=== PATIENT | male | born 1965 | race Caucasian/White ===

== ENCOUNTER 2022-10-07 07:10 | Day surgery (SDC) | payer SELFPAY ==
[~2022-10-07] VITALS: Ht 188 cm; Wt 113.2 kg
[2022-10-07] MEDS ORDERED: VALACYCLOVIR1000 MG PO (07:28)
[2022-10-07] MEDS ORDERED: SILDENAFIL20 MG PO (07:29)
--- NOTE | 2022-10-07 09:09 | NUR ---
10/07/22 0909 Laurence Pedraza 0906 PT ARRIVED ASLEEP AND RESP EVEN AND UNLABORED.
--- NOTE | 2022-10-07 10:07 | NUR ---
PT IS BACK TO DS FROM PACU. HE IS STILL SLEEPY AND NEEDED A LITTLE MORE TIME.
--- NOTE | 2022-10-07 11:02 | NUR ---
LE 1053: PT AND ARE GIVEN VERBAL AND WRITTEN DC INSTRUCTIONS. QUESTIONS ARE ASKED AND ANSWERED. PT IS TAKEN TO PERSONAL VEHICLE VIA WC.
--- NOTE | 2022-10-07 15:52 | OR ---
[facility] [place] [facility] [address], [place] [address] Signed DATE OF OPERATION: SURGEON: Radha Ramires MD PREOPERATIVE DIAGNOSIS: Screening. POSTOPERATIVE DIAGNOSES: 1. 6 mm polyp at mid left colon. 2. A 10 mm polyp at 80 proximal left colon. 3. Moderate prep. PROCEDURES: Colonoscopy, snare polypectomy, hot biopsy and injection of tattoo at 80 cm. ESTIMATED BLOOD LOSS: None. INDICATIONS: Ирина is a 57-year-old gentleman, asked to see me for a screening colonoscopy. He has lower GI complaints. There is no family history of colon cancer or polyps. In the office, I gave him a pamphlet on colonoscopy and we reviewed the nature of the test. He understands there is risk including, but not limited to gas bloating, crampy abdominal pain, bleeding, perforation requiring surgery, and missed diagnosis. We also reviewed the need for IV conscious sedation. He had expressed understanding and wished to proceed. PROCEDURE IN DETAIL: Ирина was taken into our endoscopy suite and placed in the left lateral decubitus position. He was given 200 mcg of fentanyl, 9 mg of Versed to cover the case. A digital rectal exam was performed and this was unremarkable. He had good sphincter tone. No external hemorrhoids. No masses. The adult colonoscope had been introduced and advanced under direct visualization of camera. We took out a 6 mm polyp in his mid left colon with hot biopsy forceps. It took a little extra sedation and some abdominal compression in order to advance the scope directly into the cecum itself. Unfortunately, his prep was moderate. He still had some particulate liquid stool matter that I could not completely suction through the scope. He needs to take a double bowel prep in the future. We took pictures throughout for photodocumentation. The scope was then slowly withdrawn. We found a 10 mm polyp on the back of the fold at about 80 cm. It seems to be in the proximal colon. We took part of that out with the snare. Unfortunately, we only had a small snare available today. We decided we place a tattoo Electronically Signed By: RADHA RAMIRES MD 10/07/22 1552 PATIENT NAME: ИРИНА RODRIGUEZ OPERATIVE REPORT DATE OF : 67 REPORT #: [id number] PHYSICIAN: RADHA RAMIRES MD PCP: CHARLI DOBSON MD REPORT IS CONFIDENTIAL AND NOT TO BE RELEASED WITHOUT AUTHORIZATION [facility] [address], [place] [address] Signed in this area. Then switched out our injection needles and then the new product was quite flimsy and it was difficult to use that new injection needle. We think some tattoo went transmural, but some of it made underneath the mucosa. The rest of the colon and rectum were unremarkable. Upon retroflexion of scope we did not see any additional pathology above the anal canal. After this, the gas was suctioned out. The colonoscope removed. Ирина tolerated the procedure quite well. RECOMMENDATIONS: I will see Ирина in my office in next 7-14 days. He should return in the months ahead for repeat endoscopy. He should take a double bowel prep. Radha Ramires MD ALB/MODL /[id number] cc: MD Radha Carter MD Copies: CHARLI DOBSON DMD, ANDREW L MD ~ Electronically Signed By: RADHA RAMIRES MD 10/07/22 1552 PATIENT NAME: ИРИНА RODRIGUEZ OPERATIVE REPORT DATE OF : 67 REPORT #: [id number] PHYSICIAN: RADHA RAMIRES MD PCP: CHARLI DOBSON MD REPORT IS CONFIDENTIAL AND NOT TO BE RELEASED WITHOUT AUTHORIZATION
--- NOTE | 2022-10-10 12:33 | PATH ---
[facility] [address] [place], [place] [address] Signed SPECIMEN(S): A DESCENDING/LEFT COLON POLYP SPECIMEN(S): B DESCENDING/LEFT COLON POLYP AT 80 CM SPECIMEN SOURCE: A. DESCENDING/LEFT COLON POLYP B. DESCENDING/LEFT COLON POLYP AT 80 CM CLINICAL HISTORY: Screening FINAL PATHOLOGIC DIAGNOSIS: A. Descending / left colon polyp: - Tubular adenoma (two fragments). B. Descending / left colon polyp at 80 cm: - Hyperplastic polyps (two fragments). JVR:smh:C2NR MICROSCOPIC EXAMINATION: Histologic sections of all submitted blocks are examined by light microscopy. These findings, together with the gross examination, support the pathologic diagnosis. GROSS DESCRIPTION: Two specimens are received in two containers, labeled "EG." A. The specimen, labeled "EG, descending/left colon polyp," is received in formalin and consists of two garg soft tissue fragments that measure each 0.3 cm in greatest dimension. The specimen is entirely submitted in cassette (A1). B. The specimen, labeled "EG, descending/left colon polyp," is received in formalin and consists of three garg soft tissue fragments that measure 0.2 to 0.3 cm in greatest dimension. The specimen is entirely submitted in cassette (B1). HH (under the direct supervision of a pathologist) The Gross Description was prepared using a voice recognition system. The report was reviewed for accuracy; however, sound-alike word errors, addition and/or deletions may occur. If there is any question about this report, please contact Client Services. PERFORMING LABORATORY: The technical component was performed by [facility], [address] [place] [id number] (CLIA# [id number]). Professional interpretation was PATIENT NAME: ИРИНА RODRIGUEZ PATHOLOGY DATE OF : 67 REPORT #: [id number] PHYSICIAN: ALFREDO PATHOLOGY PCP: CHARLI DOBSON MD REPORT IS CONFIDENTIAL AND NOT TO BE RELEASED WITHOUT AUTHORIZATION [facility] [address] [place] [address] Signed performed by [facility] [address] [place] [address] (CLIA#: [id number]). Diagnostician: Sher De Leon MD Pathologist Electronically Signed 10/10/2022 Copies: ~ PATIENT NAME: ИРИНА RODRIGUEZ PATHOLOGY DATE OF : 67 REPORT #: [id number] PHYSICIAN: ALFREDO PATHOLOGY PCP: CHARLI DOBSON MD REPORT IS CONFIDENTIAL AND NOT TO BE RELEASED WITHOUT AUTHORIZATION
== END 2022-10-07 10:55 | disposition home or self-care (01) ==
LOC: DS 07:10 → OPS 07:10 → DS 08:15 → OPS 10:55
PROVIDERS: ATTEND Colon & Rectal Surgery
PROC: 0DBM8ZZ Excision of Descending Colon, Via Natural or Artificial Opening Endoscopic (ICD-10-PCS; principal; 2022-10-07 08:15)
DX: Z12.11 Encounter for screening for malignant neoplasm of colon (principal); F90.9 Attention-deficit hyperactivity disorder, unspecified type; E78.5 Hyperlipidemia, unspecified; D12.4 Benign neoplasm of descending colon
CPT/HCPCS: 99153; G0500; J2250; J3010; J7121

== ENCOUNTER 2023-05-07 06:25 | Day surgery (SDC) | payer BC ==
[~2023-05-07] VITALS: Ht 188 cm; Wt 116.8 kg
[~2023-05-07 06:25] MED LIST: SILDENAFIL20 MG PO; VALACYCLOVIR1000 MG PO
[2023-05-07 06:41] VITALS: BP 119/70
--- NOTE | 2023-05-07 08:29 | NUR ---
05/07/23 0829 Aisha Sepulveda 0818-PATIENT ARRIVED TO PACU ON 3L NC PLACED ON 2. PATIENT REACTIVE TO VERBAL STIMULI EYES CLOSED REMAINS VERY DROWSY LAYING LEFT LATERAL. DENIES PAIN OR NAUSEA. IVF INFUSING. ABDOMEN SOFT. 0820-PATIENT APNEIC AROUSES TO VERBAL STIMULI EYES CLOSED TAKES DEEP BREATHES. STOP BANG SCORE OF 4. HOB ELEVATED. 92% 2L NC RR 10
[2023-05-07 09:31] VITALS: BP 118/90
--- NOTE | 2023-05-07 13:23 | OR ---
[facility] [address] [place], [place] [address] Signed DATE OF OPERATION: 05/07/2023 SURGEON: Radha Ramires MD PREOPERATIVE DIAGNOSES: 1. Personal history of colonic polyps in October 2022 at age 56. 2. Possible tattoo at 80 cm. POSTOPERATIVE DIAGNOSES: 1. Minimal sigmoid diverticulosis. 2. Minimal internal hemorrhoids. 3. 4 mm polyp at 70 cm in the left colon. 4. 7 mm polyp at distal transverse colon. 5. 8 mm polyp at distal right colon. 6. 4 mm polyp at base of cecum. 7. 5 mm polyp at 50 cm in the left colon. 8. No visible evidence of tattoo at 80 cm. PROCEDURE: Colonoscopy with hot biopsy. ESTIMATED BLOOD LOSS: None. INDICATIONS: Ирина is a 57-year-old gentleman, who came to us in October of 2022 for his initial screening colonoscopy. He had two polyps in his left colon. One was adenomatous. The other was a hyperplastic polyp at 80 cm. It was behind the fold and somewhat difficult to remove. We tried to place a tattoo with a new injection needle. It was very flimsy and we had a tremendous amount of difficulty. We thought maybe the tattoo went transmural. In addition, his prep was not the best. He had a fair amount of liquid particulate stool matter that we could not suction out completely. Consequently, we asked him to come back with a double bowel prep on a short interval. In the office, I had reviewed this with Ирина in detail. I gave him another brochure on colonoscopies, which he now understands quite well. There is risk including, but not limited to gas bloating, crampy abdominal pain, bleeding, perforation requiring surgery, and missed diagnosis. We also had reviewed the need for IV conscious sedation. He took 9 mg of Versed and 200 mcg of fentanyl for his 1st colonoscopy. Even then, we had to do some abdominal compression in order to get the scope down into the cecum. He was intermittently awake. He thought he wanted to go ahead and try that once again. He had Electronically Signed By: RADHA RAMIRES MD 05/07/23 1323 PATIENT NAME: ИРИНА RODRIGUEZ OPERATIVE REPORT DATE OF : 67 REPORT #: [id number] PHYSICIAN: RADHA RAMIRES MD PCP: CHARLI DOBSON MD REPORT IS CONFIDENTIAL AND NOT TO BE RELEASED WITHOUT AUTHORIZATION [facility] [address] [place], [place] [address] Signed expressed understanding and wished to proceed. PROCEDURE NOTE: Ирина was taken into our endoscopy suite and placed in the left lateral decubitus position. On this occasion, he took 8 mg of Versed and 150 mcg of fentanyl. Again, he was intermittently awake and groaning. His scope was not particularly difficult. We actually passed the scope fairly easily. Although he did take a little abdominal compression because he was awake and we did get into the cecum once again. With his double bowel prep, his prep was much better. He had just a little bit of liquid particulate stool matter in the cecum which we suctioned out. Once we did that, of course we saw the small polyp in the base of the cecum, removed with hot biopsy forceps. We had also removed polyps as we came in with the scope. Therefore, the measurements I am sure off by 10 to 20 cm. We can see that as we withdrew the scope. His prep was quite good on this occasion. We had taken pictures throughout for photodocumentation. We did see a few shallow diverticula in the sigmoid colon. We looked carefully with myself and three nurses back and forth and we never could find a tattoo anywhere near 80 cm. I suspect with the flimsy injection needle we had that week it went transmural. Nevertheless, we could not find any additional polyps in that area. We did find a polypectomy scar and it is well healed. Once in the rectum, we noticed he has quite prominent rectal veins. It makes you wonder about his liver. That could be evaluated with ultrasound per his primary care provider. We had retroflexed the scope and he has minimal internal hemorrhoids. On digital rectal exam, he had no external hemorrhoids with good sphincter tone. He is a large man and I could barely reach the bottom of his prostate, which is a bit indurated and enlarged. After this, the gas had been suctioned out and the colonoscope removed. Ирина tolerated the procedure overall well. RECOMMENDATIONS: I will see Ирина back in my office in 7 to 14 days to review his results. He might consider a monitored anesthesia care in the future if he has recall of the procedure plus it would make it technically more easy for Ирина and the endoscopist. In addition, he had prominent rectal veins which might suggest he has something in his liver and that would certainly be solved with an ultrasound of his liver. I think at this point, he will be on a 3 year plan but not more than 5. Radha Ramires MD ALB/MODL /[id number] Electronically Signed By: RADHA RAMIRES MD 05/07/23 1323 PATIENT NAME: ИРИНА RODRIGUEZ OPERATIVE REPORT DATE OF : 67 REPORT #: [id number] PHYSICIAN: RADHA RAMIRES MD PCP: CHARLI DOBSON MD REPORT IS CONFIDENTIAL AND NOT TO BE RELEASED WITHOUT AUTHORIZATION [place] [id number] [facility] [place], [place] [address] Signed cc: MD Charli Mott MD Copies: RADHA RAMIRES MD, ROBERT D DMD ~ Electronically Signed By: RADHA RAMIRES MD 05/07/23 1323 PATIENT NAME: ИРИНА RODRIGUEZ OPERATIVE REPORT DATE OF : 67 REPORT #: [id number] PHYSICIAN: RADHA RAMIRES MD PCP: CHARLI DOBSON MD REPORT IS CONFIDENTIAL AND NOT TO BE RELEASED WITHOUT AUTHORIZATION
--- NOTE | 2023-05-08 11:47 | PATH ---
[facility] [address] [facility] [place] [address] Signed SPECIMEN(S): A POLYP AT 70 CM SPECIMEN(S): B DISTAL TRANSVERSE COLON POLYP SPECIMEN(S): C DISTAL ASCENDING/RIGHT COLON POLYP SPECIMEN(S): D CECUM COLON POLYP SPECIMEN(S): E DESCENDING/LEFT COLON POLYP AT 50 CM SPECIMEN SOURCE: A. POLYP AT 70 CM B. DISTAL TRANSVERSE COLON POLYP C. DISTAL ASCENDING/RIGHT COLON POLYP D. CECUM COLON POLYP E. DESCENDING/LEFT COLON POLYP AT 50 CM CLINICAL HISTORY: Pre: 10/2022: Polyps x 2, left colon. Post: Internal hemorrhoids, diverticulosis, polyps x 5. FINAL PATHOLOGIC DIAGNOSIS: A. Polyp at 70 cm: - Tubular adenoma (one fragment). B. Distal transverse colon polyp: - Tubular adenoma (one fragment). C. Distal ascending right colon polyp: - Tubular adenoma (one fragment) D. Cecum colon polyp: - Polypoid colonic mucosa with benign features, negative for pathologic inflammation. E. Descending / left colon polyp at 50 cm: - Tubular adenoma (one fragment). JVR:smh:C2NR MICROSCOPIC EXAMINATION: Histologic sections of all submitted blocks are examined by light microscopy. These findings, together with the gross examination, support the pathologic diagnosis. GROSS DESCRIPTION: A. The specimen, labeled and designated "Darryl, polyp at 70 cm," is received in formalin and consists of one garg soft tissue fragment, 0.3 cm. Entirely submitted in (A1). B. The specimen, labeled and designated "Darryl, distal transverse colon PATIENT NAME: ИРИНА RODRIGUEZ PATHOLOGY DATE OF : 67 REPORT #: [id number] PHYSICIAN: CARLOSDine perfect PATHOLOGY PCP: CHARLI DOBSON MD REPORT IS CONFIDENTIAL AND NOT TO BE RELEASED WITHOUT AUTHORIZATION [facility] [address] [place], [place] [address] Signed polyp," is received in formalin and consists of one garg soft tissue fragment, 0.4 cm. Entirely submitted in (B1). C. The specimen, labeled and designated "Darryl, distal ascending/right colon polyp," is received in formalin and consists of one garg soft tissue fragment, 0.3 cm. Entirely submitted in (C1). D. The specimen, labeled and designated "Darryl, cecum colon polyp," is received in formalin and consists of one garg soft tissue fragment, 0.2 cm. Entirely submitted in (D1). E. The specimen, labeled and designated "Darryl, descending/left colon polyp at 50 cm," is received in formalin and consists of one garg soft tissue fragment, 0.3 cm. Entirely submitted in (E1). VB (under the direct supervision of a pathologist) The Gross Description was prepared using a voice recognition system. The report was reviewed for accuracy; however, sound-alike word errors, addition and/or deletions may occur. If there is any question about this report, please contact Client Services. PERFORMING LABORATORY: Technical component was performed by [facility], [address] [place] [id number] (CLIA# [id number]). Professional interpretation was performed by [email or web address], [address] [place] [id number] (CLIA#: [id number]). Diagnostician: Sher De Leon MD Pathologist Electronically Signed 05/08/2023 Copies: ~ PATIENT NAME: DARRYLИРИНАZANDER BOWDEN PATHOLOGY DATE OF : 67 REPORT #: [id number] PHYSICIAN: ALFREDO PATHOLOGY PCP: CHARLI DOBSON MD REPORT IS CONFIDENTIAL AND NOT TO BE RELEASED WITHOUT AUTHORIZATION
== END 2023-05-07 09:40 | disposition home or self-care (01) ==
LOC: DS 06:25 → OPS 06:25 → DS 09:00 → OPS 09:00 → DS 10:30
PROVIDERS: ATTEND Colon & Rectal Surgery
PROC: 0DBL8ZX Excision of Transverse Colon, Via Natural or Artificial Opening Endoscopic, Diagnostic (ICD-10-PCS; 2023-05-07)
PROC: 0DBM8ZX Excision of Descending Colon, Via Natural or Artificial Opening Endoscopic, Diagnostic (ICD-10-PCS; 2023-05-07)
PROC: 0DBH8ZX Excision of Cecum, Via Natural or Artificial Opening Endoscopic, Diagnostic (ICD-10-PCS; 2023-05-07)
PROC: 0DBK8ZX Excision of Ascending Colon, Via Natural or Artificial Opening Endoscopic, Diagnostic (ICD-10-PCS; principal; 2023-05-07 07:30)
DX: Z12.11 Encounter for screening for malignant neoplasm of colon (principal); E78.5 Hyperlipidemia, unspecified; Z86.010 Personal history of colon polyps; F90.9 Attention-deficit hyperactivity disorder, unspecified type; K64.8 Other hemorrhoids; K57.30 Diverticulosis of large intestine without perforation or abscess without bleeding; D12.2 Benign neoplasm of ascending colon; D12.0 Benign neoplasm of cecum; D12.4 Benign neoplasm of descending colon; D12.3 Benign neoplasm of transverse colon
CPT/HCPCS: 99153; G0500; J2250; J3010